=== PATIENT | male | born 1945 | race Caucasian/White ===

== ENCOUNTER 2019-11-21 16:30 | Emergency (ER) | payer MEDICARE, SELFPAY ==
[2019-11-21 16:32] VITALS: BP 144/90; PULSE 98; RESP 18; TEMP 36.1; O2SAT 94; BMI 32.9
--- NOTE | 2019-11-21 16:55 | RAD_ITS ---
STUDY: X-RAY CHEST REASON FOR EXAM: Male, 74 years old. Cough. Back pain. TECHNIQUE: PA and lateral views of the chest. COMPARISON: October 12, 2014. FINDINGS: The lungs are well-expanded. There are stable nodular densities consistent with calcified granulomata. There is no demonstrated pleural abnormality. Normal size heart. Normal mediastinum and chrissy. Normal visualized pulmonary arteries. There is atherosclerotic calcification of the aortic arch with tortuosity. There are diffuse degenerative changes of the visualized thoracic spine. There is degenerative osteoarthritis of the bilateral shoulders. There is no demonstrated abnormality of the visualized soft tissue structures of the upper abdomen. RAD/Chest PA and Lateral IMPRESSION: Old granulomatous disease without acute cardiopulmonary process. Electronically Signed: Sean Thomas DO at 18:30 EST Tel [phone], Service support ,
--- NOTE | 2019-11-21 16:56 | ED.VIS.GEN ---
History of Present Illness Chief Complaint: Cough Informant: Patient Onset: Weeks - Onset prior to [place] Context: Sudden Onset Timing: Continuous Quality: Cough that is now productive green-colored sputum Location: Upper respiratory Current Severity: Mild Maximum Severity: Moderate Worsened by: Nothing Relieved by: Nothing Associated Symptoms: Nasal congestion Narrative: Patient is 74-year-old male who was a former smoker. He quit 27 years ago. He presents with respiratory symptoms started prior to [place]. His cough is now productive of green-colored sputum. He denies dyspnea or dyspnea on exertion. Eyes PND or orthopnea. He denies chest discomfort. He denies documented fever. He reports subjective fever with diaphoresis. He denies rigors. He denies ear pain, decreased hearing or ringing in his ears. He denies throat pain. Does report slight change in voice. He denies GI symptoms. He denies myalgias arthralgias. He denies rash. Prior similar symptoms: No Recent Illness/Hospitalization: No - Past Medical History (1) Depression Status: Chronic (2) History of smoking 10-25 pack years Status: Chronic (3) Hyperlipidemia Status: Chronic (4) Hypertension Status: Chronic (5) Obesity Status: Chronic Past Medical History - Allergies and Home Meds Allergies/Adverse Reactions: Allergies amoxicillin [Amoxicillin] Allergy (Verified 11/21/19 16:31) Rash Primary Care Physician: Otoniel Engel III, MD [Primary Care Provider] - Prior records reviewed: Yes Surgical History: noncontributory, - - Cardiac cath Lives: Alone Smoking Status: Former smoker Drugs: None Review of Systems General: Reports: Fever, Malaise, Subjective, Sweats. Denies: Chills, Weight loss Eyes: Denies: Visual changes - bilaterally, Blurred Vision - bilaterally, Diplopia ENT: Reports: Rhinorrhea. Denies: Bilateral ear pain, Sore throat Cardiovascular: Denies: Chest pain, Palpitations Respiratory: Reports: Cough, Sputum. Denies: Dyspnea, Dyspnea on exertion, Orthopnea, Paroxysmal nocturnal dyspnea Gastrointestinal: Denies: Abdominal pain, Nausea, Vomiting, Diarrhea, Melena, Hematochezia Genitourinary: Denies: Dysuria, Hematuria, Frequency Musculoskeletal: Denies: Myalgias, Arthralgias, Neck pain, Back pain, Swelling, Extremity Pain, -, - Skin: Denies: Rash, Wounds Neurological: Denies: Headache, Weakness, Numbness Psych: Reports: Depression Hematologic: Denies: Easy bruising, Easy bleeding Physical Exam Vital Signs/Narrative: Vital Signs Temp Pulse Resp BP Pulse Ox 11/21/19 16:32 96.9 F L 98 18 144/90 H 94 Inital Vital Signs reviewed: Yes General: Well nourished, Well developed, No Acute Distress Head: Normocephalic, Atraumatic Eyes: Perrl, EOMI ENT: Moist mucous membranes, TM's clear, Nasal congestion Neck: Supple, Nontender Cardiovascular: Regular rate, Regular rhythm, No murmurs, Normal S1, Normal S2 Respiratory: No distress, CTA bilaterally, Chest nontender. Negative for: Rales, Rhonchi, Wheezing Abdomen: Soft, Nontender, Nondistended, Normal bowel sounds, No masses Back: Nontender, Normal Inspection Extremities: Nontender, No edema. Negative for: Calf Tenderness Skin: Normal color, No rash, No Trauma. Negative for: Cyanosis, Diaphoresis, Jaundice Neurological: Alert, Oriented x3, Cranial nerves II-XII grossly intact, Normal Strength, Normal Sensation Psychological: Normal affect, Normal Mood Diagnostic/Tx/Re-eval Chest X-Ray - ED: 2 View, Read by ED Physician, Normal, Heart, Bony Structures, - - Granulomatous disease noted with 1 peripheral nodules noted left peripheral mid lung field. There appears to be an infiltrate right upper lobe. Impressions Chest X-Ray 11/21/19 16:55 IMPRESSION: Old granulomatous disease without acute cardiopulmonary process. Electronically Signed: Sean Thomas DO at 18:30 EST Tel [phone], Service support , 11/21/19 16:55 Chest PA and Lateral [RAD] Stat Laboratory Results 11/21/19 11/21/19 17:08 17:08 WBC 11.8 H RBC 4.38 L Hgb 13.6 Hct 39.6 L MCV 90.4 MCH 31.1 MCHC 34.3 RDW Std Deviation 42.5 RDW Coeff of Christina 12.9 Plt Count 252 MPV 9.5 Immature Gran % (Auto) 0.700 Neut % (Auto) 81.5 H Lymph % (Auto) 12.4 L [place] % (Auto) 4.7 Eos % (Auto) 0.4 Baso % (Auto) 0.3 Absolute Neuts (auto) 9.6 H Absolute Lymphs (auto) 1.47 Nucleated RBC % 0 Sodium 140 Potassium 3.5 Chloride 103 Carbon Dioxide 31.0 Anion Gap 6 BUN 17 Creatinine 1.16 Estim Creat Clear Calc 47.13 Est GFR (MDRD) Af Amer 79 Est GFR (MDRD) Non-Af 65 BUN/Creatinine Ratio 14.7 Glucose 104 Calcium 8.7 - Medical Decision Making With report of diaphoresis, subjective fever and productive cough chest x-ray and appropriate blood work was obtained to assess for pneumonia versus bronchitis. It is elevated. There is infiltrate noted right side that was not noted by the radiologist. Patient be discharged home on antibiotics and prednisone. ED Disposition - Plan for ED Patient: Disposition: Home or Assisted Living Diagnosis: Right upper lobe pneumonia, Acute bronchospasm Instructions: PNEUMONIA (Adult) Prescriptions: Doxycycline 100 mg PO BID #14 cap Prescription Printed Albuterol Inhaler [Ventolin Hfa] 2 puff INHALATION Q4H PRN PRN #1 inhaler PRN Reason: Wheezing Prescription Printed Referrals: Otoniel Engel III, MD [Primary Care Provider] - 3-5 Days
[2019-11-21 17:17] LABS: Absolute Lymphocyte Count 1.47 X10^3/uL (0.83-4.51); Absolute Neutrophil Count 9.6 X10^3/uL (2.0-7.7); Basophil# 0.04 X10^3/uL; Basophil% 0.3 % (0-1); Eosinophil# 0.05 X10^3/uL; Eosinophils% 0.4 % (0-5); Hematocrit 39.6 % (40-54); Hemoglobin 13.6 g/dL (13.0-16.5); Lymphocyte # 1.47 X10^3/ul (4.0); Lymphocyte % 12.4 % (19-41); Mean Corp Hgb Conc 34.3 g/dL (32-36); Mean Corpuscular Hgb 31.1 pg (27.0-32.0); Mean Corpuscular Volume 90.4 fL (80-94); Mean Platelet Vol. 9.5 fl (6.2-12.0); Monocyte# 0.56 X10^3/uL; Monocyte% 4.7 % (0-10); NRBC Flagged by Analyzer 0 % (0-5); Neutrophil # 9.61 X10^3/uL (2.7-7.7); Neutrophil % 81.5 % (47-70); Platelet Count 252 K/mm3 (150-450); RBC Distribution Width CV 12.9 % (11.6-14.6); RBC Distribution Width SD 42.5 fl (35.1-43.9); Red Blood Count 4.38 M/mm3 (4.6-6.2); White Blood Count 11.8 K/mm3 (4.4-11.0)
[2019-11-21 17:34] LABS: Anion Gap 6 (5-15); BUN 17 mg/dL (7-18); BUN/Creat Ratio 14.7 RATIO (10-20); Calcium,Total 8.7 mg/dL (8.5-10.1); Chloride 103 mmol/L (98-107); Creatinine, Serum 1.16 mg/dL (0.70-1.30); EST Glomerular Filtration Rate 65 mL/min (>60); Est Glom Filt Rate - Afr Amer 79 mL/min (>60); Estimated Creatinine Clearance 47.13 ml/min; Glucose 104 mg/dL (74-106); Potassium 3.5 mmol/L (3.5-5.1); Sodium Level 140 mmol/L (136-145)
[2019-11-21] MEDS: Doxycycline 100 MG CAPSULE PO (18:55)
[2019-11-21 18:56] VITALS: BP 133/74; PULSE 94; RESP 18; O2SAT 97
== END 2019-11-21 19:00 | disposition home or self-care (01) ==
PROVIDERS: Emergency Provider Emergency Medicine; Family Provider Family Medicine; PCP Family Medicine
DX: J18.9 Pneumonia, unspecified organism (principal); J98.01 Acute bronchospasm; E66.9 Obesity, unspecified; E78.5 Hyperlipidemia, unspecified; F32.9 Major depressive disorder, single episode, unspecified; I10 Essential (primary) hypertension; Z79.899 Other long term (current) drug therapy; Z87.891 Personal history of nicotine dependence
CPT/HCPCS: 71046; 80048; 85025; 99283; A4216

== ENCOUNTER → 2025-08-22 | Outpatient (CLI) | payer MEDICARE, SELFPAY ==
--- NOTE | 2025-08-22 14:08 | RAD_ITS ---
EXAM: XR Lumbosacral Spine Flexion/Extension Only, 2 or 3 Views CLINICAL INDICATION: LUMBAR RADICULOPATHY TECHNIQUE: Lateral flexion/extension views of the lumbar spine and sacrum. COMPARISON: No relevant prior studies available. FINDINGS: VERTEBRAE: Moderate facet arthropathy of L3-S1. Moderate endplate degenerative changes and disc degeneration of T11-L1. No acute fracture. Normal sagittal alignment. No instability. SACRUM/COCCYX: Unremarkable as visualized. No acute fracture. DISC SPACES: No acute findings. No significant narrowing. SOFT TISSUES: Unremarkable. VASCULATURE: Scattered calcified atherosclerotic disease of aorta. RAD/L/S Spine Min 4 Views IMPRESSION: Degenerative changes as above. Reading Location: [id number]
== END | disposition home or self-care (01) ==
PROVIDERS: PCP Family Medicine; Referring Provider Anesthesiology; Visit Provider Anesthesiology
DX: M54.16 Radiculopathy, lumbar region (principal)
CPT/HCPCS: 72110